=== PATIENT | female | born 1950 | race Caucasian/White ===

== ENCOUNTER 2020-09-16 18:22 | Emergency (ER) | payer OTHER ==
[~2020-09-16] VITALS: Ht 175.3 cm; Wt 74.8 kg
[2020-09-16 18:35] VITALS: BP 171/103
--- NOTE | 2020-09-16 19:15 | NUR ---
PT. CAME TO ED WITH C/O OF RIGHT SIDE NUMBNESS. PT. STATES THAT SHE HAS SHINGLES TO THE CHEST AND BACK SINCE 2 WEEKS AGO. PER PT., SHE STATES THAT SHE HAS HAD SHINGLES "SINCE 2 WEEKS AGO AND URGENT CARE GAVE ME MEDICATION (PREDNISONE AND VALTREX) FOR IT. URGENT CARE SAID THAT NUMBNESS COULD BE A SIDE EFFECT OF THE MEDICATION BUT TO GO TO ED TO RULE OUT ANY STROKE." SKIN IS PINK/WARM/DRY; AAOX4 WITH EVEN AND STEADY GAIT; HR EVEN AND REGULAR; PT DENIES ANY FEVER, CP, SOB, OR COUGH AT THIS TIME; VSS; PATIENT POSITIONED FOR COMFORT; HOB ELEVATED; BEDRAILS UP X2; BED DOWN. ER MD MADE AWARE OF PT STATUS. PMH: HTN, HYPERLIPIDEMIA, HYPERTHYROIDISM ALLERGIES: NKA
--- NOTE | 2020-09-16 19:25 | NUR ---
MARYLOU JEREZ AT BEDSIDE.
[2020-09-16] MEDS ORDERED: ONDANSETRON 4 MG ODT PO ONE (20:10)
[2020-09-16] MEDS ORDERED: HYDROcodone/APAP 5/325 MG 1 TAB TAB PO ONE (20:10)
--- NOTE | 2020-09-16 21:06 | NUR ---
PT TAKEN TO CT.
[2020-09-16] MEDS ORDERED: ACET-8386 PO (21:44)
[2020-09-16] MEDS ORDERED: ONDA-24 PO (21:44)
[2020-09-16 22:01] VITALS: BP 171/103
--- NOTE | 2020-09-16 22:01 | NUR ---
Patient discharged with v/s stable. Written and verbal after care instructions given and explained. Patient alert, oriented and verbalized understanding of instructions. Ambulatory with steady gait. All questions addressed prior to discharge. ID band removed. Patient advised to follow up with PMD. Rx of HYDROCODONE/ACETAMINOPHEN AND ZOFRAN given. Patient educated on indication of medication including possible reaction and side effects. Opportunity to ask questions provided and answered.
== END 2020-09-16 22:01 | disposition home or self-care (01) ==
LOC: MED 18:22
DX: B02.9 Zoster without complications (principal); R07.89 Other chest pain; I10 Essential (primary) hypertension; E07.9 Disorder of thyroid, unspecified; Z79.899 Other long term (current) drug therapy
CPT/HCPCS: 70450; 81002; 99284; Q0162

== ENCOUNTER 2020-09-18 19:34 | Emergency (ER) | payer OTHER ==
[~2020-09-18] VITALS: Ht 152.4 cm; Wt 73.9 kg
[~2020-09-18 19:34] MED LIST: ACET-8386 PO; ONDA-24 PO
[2020-09-18 19:40] VITALS: BP 154/89
--- NOTE | 2020-09-18 19:40 | NUR ---
TO BED AMBULATORY
--- NOTE | 2020-09-18 20:07 | NUR ---
70/F C/O FACIAL DROOP AND BLISTERS IN HER SCALP, BACK AND SHOULDERS FOR 17 DAYS. PT STATES BUNING PAIN WITH SCALE OF 8/10. PT BEING TREATED FOR SHINGLES SEEN BY MARYLOU WITH PRESCRIPTION OF ACYLOVIR. PT DENIES ANY CHEST PAIN, NAUSEA, VOMITING, DIARRHEA. PMH: SHINGLES, OVARIAN CA, HTN, HLD, THYROID DSE NKDA
[2020-09-18] MEDS ORDERED: TETRACAINE 1% 2 ML AMP INJ ONE (20:50)
[2020-09-18] MEDS ORDERED: FLUORESCEIN OPTH STRIP 1 MG OP ONE (20:50)
--- NOTE | 2020-09-18 20:50 | NUR ---
SAID AT BEDSIDE EXAMINING PATIENT
[2020-09-18] MEDS ORDERED: TETRACAINE HCL/PF 0.5% OPTH 4 ML BTL ONE (20:51)
[2020-09-18] MEDS ORDERED: GLYC15SO12 OP (21:06)
[2020-09-18] MEDS ORDERED: GABA-636 PO (21:06)
[2020-09-18] MEDS ORDERED: ERYT5OIN58 OP (21:06)
[2020-09-18 21:17] VITALS: BP 154/89
--- NOTE | 2020-09-18 21:17 | NUR ---
Patient discharged with v/s stable. Written and verbal after care instructions given and explained. Patient alert, oriented and verbalized understanding of instructions. Ambulatory with steady gait. All questions addressed prior to discharge. ID band removed. Patient advised to follow up with PMD. Rx of ERYTHROMYCIN, GABAPENTIN, ARTIFICIAL TEARS given. Patient educated on indication of medication including possible reaction and side effects. Opportunity to ask questions provided and answered.
== END 2020-09-18 21:17 | disposition home or self-care (01) ==
LOC: MED 19:34
DX: G51.0 Bell's palsy (principal); B02.9 Zoster without complications; H04.123 Dry eye syndrome of bilateral lacrimal glands; I10 Essential (primary) hypertension; E78.5 Hyperlipidemia, unspecified; E07.9 Disorder of thyroid, unspecified; Z85.43 Personal history of malignant neoplasm of ovary; Z90.710 Acquired absence of both cervix and uterus
CPT/HCPCS: 99283